=== PATIENT | female | born 1995 ===

== ENCOUNTER 2024-06-20 15:54 | Outpatient (REF) | payer BC, SELFPAY ==
[2024-06-20 21:26] LABS: ALT 26 U/L (14-59); AST 12 U/L (15-37); Albumin 3.8 g/dL (3.4-5.0); Alkaline Phosphatase 94 U/L (46-116); Anion Gap 9.8 mmol/L (3-11); BUN 11 mg/dL (7-18); CO2 23.2 mmol/L (21.0-32.0); CREATININE 0.8 mg/dL (0.55-1.02); Calcium 9.4 mg/dL (8.5-10.1); Calculated LDL 154 mg/dL (<100); Chloride 105 mmol/L (98-107); Cholesterol 252 mg/dL (<200); Estimated GFR 102.86 (mL/min/1.73m2); Glucose 81 mg/dL (74-106); HDL Cholesterol 43 mg/dL (40-60); Potassium 4.4 mmol/L (3.5-5.1); Sodium 138 mmol/L (136-145); Total Protein 7.8 g/dL (6.4-8.2); Triglyceride 279 mg/dL (<150)
[2024-06-20 21:42] LABS: Hemoglobin A1C 5.3 % (<5.7)
[2024-06-23 11:19] LABS: Lamotrigine 2.4 mcg/mL (3.0-15.0)
== END 2024-06-20 15:55 | disposition home or self-care (01) ==
LOC: NCHCN 15:54
PROVIDERS: Visit Provider Nurse Practitioner Family
DX: F31.9 Bipolar disorder, unspecified (principal); E66.9 Obesity, unspecified
CPT/HCPCS: 80053; 80061; 80175; 83036